=== PATIENT | male | born 1975 | race Caucasian/White ===

== ENCOUNTER → 2021-01-03 07:12 | Outpatient (BNVA) | payer OTHER, SELFPAY | PROVIDERS: Family Provider Nurse Practitioner; PCP Nurse Practitioner; Visit Provider Family Medicine | DX: M76.60 Achilles tendinitis, unspecified leg (principal); I10 Essential (primary) hypertension; E78.49 Other hyperlipidemia | CPT/HCPCS: 80053; 80061; 82043; 85025 ==

== ENCOUNTER 2021-01-12 12:27 | Outpatient (CLI) | payer OTHER, SELFPAY ==
--- NOTE | 2021-01-12 12:45 | US_ITS ---
WS: [id number] INDICATION: Achilles tendon pain and swelling TECHNIQUE: Ultrasound soft tissue FINDINGS: Ultrasound soft tissue area of concern left Achilles. No evidence of high-grade Achilles te ndon tear. No tendon gap or tendon retraction. No acute appearing tears. Mild thickening of the mid A chilles tendon consistent with tendinosis. US/US soft tissue/extremity [id number] IMPRESSION: Mild thickening of the Achilles tendon upper limits of normal consi stent with tendinosis. No acute appearing tears.
== END 2021-01-12 12:28 | disposition home or self-care (01) ==
LOC: RAD 12:28
PROVIDERS: PCP Family Medicine; Visit Provider Family Medicine
DX: M76.60 Achilles tendinitis, unspecified leg (principal); M79.89 Other specified soft tissue disorders
CPT/HCPCS: 76882

== ENCOUNTER 2021-02-14 06:54 | Outpatient (CLI) | payer OTHER, SELFPAY ==
[2021-02-14 06:59] VITALS: BMI 34.2
--- NOTE | 2021-02-14 07:22 | ECG_ITS ---
[facility] Test Date: 2021-02-14 Pat Name: Gerard Guidry Department: Room: Gender: Male Global Recruiter: : 1975 Requested By: Pepper Bar Order Number: [id number] Emilie MD: PEPPER BAR Interpretive Statements NAME OF STUDY: LEXISCAN SESTAMIBI STRESS TEST INDICATION: Chest Pain, NOTE: Please note that this is the electrocardiogram portion of the Lexiscan/Sestamibi stress test. The perfusion scan will be documented separately. DATA: Baseline heart rate was 69 beats per minute. Baseline blood pressure was 180/77 millimeters of mercury. Target heart rate was 176. Maximum heart rate achieved was 100. which was 56 % of the predicted target heart rate. Maximum blood pressure was 213/92 millimeters of mercury. The reason for ending the test was completion of the protocol. The patient did not experience any symptoms. ELECTROCARDIOGRAM: BASELINE: Sinus rhythm. Normal axis. Otherwise, no ST-T changes suggestive of ischemia noted. No arrhythmia noted. EXERCISE: After Lexiscan injection, no ST-T changes suggestive of ischemic noted. No arrhythmia noted. CONCLUSION: Please note due to baseline abnormality of the EKG specificity and sensitivity of the EKG portion of LexiScan MIBI stress test will be low 1. EKG not suggestive of ischemia 2. Lexiscan injection unremarkable. 3. Perfusion scan will be documented separately. Electronically Signed On 02-19-2021 20:48:10 CDT by PEPPER BAR [id number]
--- NOTE | 2021-02-14 07:23 | NMCV_ITS ---
NM dinorah perf SPECT r/s* [id number] Gerard Guidry Age: 45 Gender: M : 1975 Exam Date: 02/14/2021 08:27 Ordering Phys: Tiff Bar MD ([email or web address]) Technologist: ROSAURA Flor Exam Location: [facility] Indications: SOB STRESS TEST Please see separate stress test report in [facility] for full findings IMAGE PROTOCOL Rest/Stress 1 Lexiscan Day Radiopharmaceutical Dose (mCi) Administration Site Administered by Rest: Tc-99m 10.9 IV ROSAURA Flor Sestamibi Stress:Tc-99m 33.0 IV ROSAURA Flor Sestamibi Rest: 14-Feb-2021 60 Discovery 630 Stress: 14-Feb-2021 45 Discovery 630 0.4mg Lexiscan. Images obtained in supine and prone position. SPECT RESULTS Technical Quality: Good Raw Data Analysis: Normal Image Corrections: No attenuation or motion correction applied Summed Stress Score: 15 Summed Rest Score: 12 Summed Difference Score: 4 PERFUSION FINDINGS Large area of fixed perfusion defect suggestive of old myocardial infarction versus scarring noted in basal distal inferior inferoseptal wall surrounded by mild clara-infarct ischemia. Small area of fixed perfusion defect noted in mid anterior wall suggestive of old myocardial infarction versus scarring. FUNCTIONAL RESULTS (calculated via Gated SPECT) Stress Image LV EF (%): 38 Stress EDV (mL):120 TID: 1.13 Stress ESV (mL):74 Rest Image LV EF (%): 38 FUNCTIONAL FINDINGS: Inferior wall akinesis IMPRESSIONS Large area of old myocardial infarction surrounded by mild clara-infarct ischemia noted in basal to distal inferior, inferoseptal and inferolateral wall. Small area of old myocardial infarction versus scarring noted in mid anterior wall.TID ratio is elevated which could be secondary to left ventricle hypertrophy/subendocardial ischemia however multivessel coronary artery disease is a possibility. Tiff Bar MD (Electronically Signed) Final Date: 14 February 2021 18:01 S
[2021-02-14] MEDS: regadenoson 0.4 Mg/5 ml Syringe IVP (09:43)
[2021-02-14 09:55] VITALS: BP 204/92; PULSE 84
== END 2021-02-14 06:55 | disposition home or self-care (01) ==
LOC: CDL 06:56
PROVIDERS: PCP Family Medicine; Visit Provider Internal Medicine Cardiovascular Disease
DX: R06.02 Shortness of breath (principal); R07.9 Chest pain, unspecified; I25.2 Old myocardial infarction
CPT/HCPCS: 78452; 93017; A9500; J2785

== ENCOUNTER → 2021-03-10 09:44 | Outpatient (BNVA) | payer OTHER, SELFPAY | PROVIDERS: PCP Family Medicine; Visit Provider Internal Medicine Cardiovascular Disease | DX: I25.10 Atherosclerotic heart disease of native coronary artery without angina pectoris (principal); Z01.812 Encounter for preprocedural laboratory examination | CPT/HCPCS: 87635 ==

== ENCOUNTER 2021-03-16 09:00 | Day surgery (SDC) | payer OTHER, SELFPAY ==
[2021-03-10 09:35] LABS: Basophils % 0.3 %; Eosinophils # 0.1 10^3/uL (0.0-0.8); Eosinophils % 0.6 %; Hematocrit 47.1 % (42.0-52.0); Lymphocytes # 2.6 10^3/uL (0.8-4.8); Mean Corpuscular Hemoglobin 30.9 pg (28.0-34.0); Mean Corpuscular Volume 90.9 fL (80-94); Monocytes # 0.8 10^3/uL (0.2-0.9); Monocytes % 8.9 %; Neutrophils # 5.43 10^3/uL (1.8-7.7); Neutrophils % 60.9 %; Nucleated Red Blood Cells % 0 %; Platelet Count 216 10^3/cmm (130-400); Red Blood Count 5.18 10^6/uL (4.1-5.3); Red Cell Distribution Width 12.6 % (12.1-15.1); White Blood Count 8.9 10^3/uL (4.0-10.0)
[2021-03-10 09:44] LABS: INR 0.96 (0.83-1.21); Prothrombin Time (Patient) 13.1 Seconds (12.0-15.1)
[2021-03-10 09:49] LABS: Anion Gap 13.6 (5-19); Blood Urea Nitrogen 15 mg/dL (6-20); Calcium 9.6 mg/dL (8.5-10.5); Carbon Dioxide 24 mmol/L (22-29); Chloride 104 mmol/L (98-107); Glomerular Filtration Rate 91.7 mL/min (90-130); Glucose 106 mg/dL (65-115); Osmolality Calculated 285 mOsm/kg (285-295); Potassium 4.6 mmol/L (3.5-5.1); Sodium 137 mmol/L (136-145)
[2021-03-16] VITALS (13 sets, daily range): BP systolic 106–133; BP diastolic 61–93; PULSE 68–82; RESP 12–19; TEMP 36.8; O2SAT 93–97; BMI 35.2
--- NOTE | 2021-03-16 09:00 | XACV_ITS ---
Ht: 185 cm Wt: 121 kg BSA: 2.54 m2 Gender: Male : 1975 Exam Priority: Routine Procedure(s): Procedure Description: Diagnostic procedure Procedure Description: Left Heart Catheterization Diagnostic Cath Status: Elective Diagnostic Findings * Indication for left heart cath: Chest pain/abnormal stress. * No significant disease noted in the Left Main, LAD, Circumflex, or RCA coronary arteries. * Coronary angiography shows right dominance. Conclusions 1. No significant disease noted in the Left Main, LAD, Circumflex, or RCA coronary arteries. Recommendations * Continue current medical management and risk factor modification. Clinical Evaluation EBL: 5mL-10mL Procedural Details Procedure Consent Obtained. Admit Source: Out Patient. Pre-Procedure Time Out. Identified patient by full name and date of as verbalized by the patient/guarantor. Does the consent match the physician's order: Yes. Accurate & Complete Informed Consent: Yes. Inpatient/Outpatient History & Physical on Chart: Yes. If H&P is completed, is and addenduem needed: N/A; If yes, is the addendum complete: N/A. Visualize and Verify Site with Patient/Guarantor: N/A. Relevant Radiology Images available: N/A. Pre-op teaching completed and patient verbalized understanding. The risks, benefits, and alternatives of sedation and/or procedure were discussed by physician. The patient agrees to continue. Procedure started. [facility] Clinical Fraility Score: 3: Managing Well. 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 Chest Pain Symptom Assessment: Atypical Angina. Cardiovascular Instability: No,. Correct patient, site and procedure confirmed by cath team. PERRLA. 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 Lungs clear x 5 lobes. IV Site on Arrival: 20 gauge in the left anticubital. Pre Procedural Pulses: bilateral dorsalis pedis was 2+. Pre Procedural Pulses: bilateral posterior tibial was 3+. Pre Procedural Pulses: bilateral radial was 3+. Oxygen started at 2liters/min via nasal canula. bilateral groins was prepped with chloroprep then draped in the usual sterile fashion. right radial was prepped with chloroprep then draped in the usual sterile fashion. Physician notified. Baseline sample Acquired. HR: 63 BPM. Physician arrived. Physician scrubbed in. Immediate Pre-Procedure Time Out. Correct Patient: Yes; Correct Procedure: Yes; Correct Site: Yes; Correct Patient Position: Yes; Correct Supplies: Yes; Dried Flammable Prep: Yes; Blood Products Available: NA;. Lidocaine 1% infiltrated to the right radial. Arterial access obtained. A 5 kuwaiti TIG catheter in over wire. Multiple views taken of left coronary artery. Catheter redirected to the RCA. Multiple views taken of right coronary artery. Catheter out. TR band placed. Hemostasis obtained. Post Procedure: Pulses reassessed and unchanged. PERRLA. 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 No VTE prophylaxis required. Contrast type used: Omnipaque 300 mgI/mL, 500 mL bottle. Contrast Material : Omnipaque 58 ml. Medication's Wasted: Lidocaine 1% = 18 mL. Medication's Wasted: Heparin = 1000 units. Total IV fluids: 50 mL. Post-op diagnosis: 14% instant stenosis of RCA. Complications: none. Estimated blood loss: 5mL-10mL. A TR Band was successful obtaining hemostatsis at the Right Radial artery insertion site. Procedure completed. Patient transferred by wheelchair to 1st floor. Vital chart was stopped. Access Site Site: Right Radial artery Sheath Size: 6 Fr Hemostasis Method: TR Band Hemostasis Success: Successful Procedure Medications Start: 10:23 AM Stop: 10:23 AM Medication: Versed Amount: 1 mg Route: I.V. Start: 10:24 AM Stop: 10:24 AM Medication: Fentanyl Amount: 50 mcg Route: I.V. Start: 10:30 AM Stop: 10:30 AM Medication: Versed Amount: 1 mg Route: I.V. Start: 10:30 AM Stop: 10:30 AM Medication: Fentanyl Amount: 50 mcg Route: I.V. Start: 10:36 AM Stop: 10:36 AM Medication: Heparin Amount: 5000 units Route: I.V. I, the attending physician, have reviewed and verified all procedure medications. Yes, all medications given per verbal order History/Risk Factors Hypertension: Yes Dyslipidemia: Yes Myocardial Infarction ([place]): Yes Tobacco Use: Former Prior Interventions PCI: Yes Report Signatures Finalized by Tiff Bra MD on 03/29/2021 09:46 PM
[2021-03-16] MEDS: diphenhydrAMINE 50 mg Capsule PO (09:45)
--- NOTE | 2021-03-16 10:21 | W.PM.OPSFHP ---
Same Day Surgery H&P Indication for Procedure/HPI DATE OF PROCEDURE: March 16, 2021 CHIEF COMPLAINT/INDICATIONFOR SURGICAL PROCEDURE: Shortness of breath, chest pain, abnormal stress test PREOP DIAGNOSIS: Shortness of breath, abnormal stress test, chest pain PLANNED PROCEDRUE: Operation Date: 03/16/21 10:00 Proposed Procedures p left Cardiac Catheterization 45109 r94.39(Left) - Tiff Bar MD 45-year-old male past medical history significant for hypertension hyperlipidemia history of cardiac arrest as a complication of ST elevation [place] noted to have occluded RCA treated with drug-eluting stent in 2019. Patient did fine until couple of months ago when he started noticing worsening of shortness of breath with chest pain upon moderate exertion. Due to atypical symptoms patient underwent stress test which showed mild to moderate ischemia in the inferior inferolateral territory despite of optimization of medicine. Since patient continues to have symptoms and he is high risk for acute coronary syndrome we decided to bring him for left heart cath. Patient has been explained by myself in detail regarding risk benefit and alternative for the procedure. He understand the risk for major minor bleed, urgent emergent surgery, arrhythmia, CVA and worse case scenario . He would like to proceed with it. Medications/Allergies* Home Medications Medication Instructions Recorded Confirmed Type rosuvastatin 40 mg tablet 20 mg PO DAILY tab 01/13/21 03/16/21 History Allergies/Adverse Reactions Allergy/AdvReac Type Severity Reaction Status Date / Time No Known Allergies Allergy Verified 01/27/21 09:05 Current Medications: Generic Name Dose Route Start Last Admin Trade Name Freq PRN Reason Stop Dose Admin Sodium Chloride 1,000 mls @ 50 mls/hr 03/16/21 09:00 03/16/21 09:46 Sodium Chloride 0.9% IV 03/17/21 04:59 Not Given .Q20H ONE Pertinent History/Comorbid Conditions* Medical History (Updated 01/17/21 @ 17:37 by Tiff Bar MD) Coronary artery disease History of [place] (myocardial infarction) HTN (hypertension) Hyperlipidemia Surgical History (Updated 12/30/20 @ 09:31 by Alexandra Roque DO) S/P PTCA (percutaneous transluminal coronary angioplasty) 03/20/19 Family History (Updated 01/15/20 @ 08:24 by Bernadette Matos LPN) Heart disease Grandfather Social History Smoking and tobacco status: former smoker History of recent travel: No Pertinent Exam Findings alert, oriented x 3, clear to auscultation bilaterally and regular rate & rhythm Conscious Sedation Assessment PATIENT ASSESSED PRIOR TO SEDATION, WITH NO CHANGE NOTED: Yes AIRWAY EVAL/ANESTHESIA PLAN: normal airway, ASA II, Risks, benefits & alternatives of sedation and/or procedure discussed and Patient agrees to continue as planned Recommendations Surgery/Procedure today Coding Level of Care Code Acute Healthcare Administration Internship for Tez Goldberg
--- NOTE | 2021-03-16 11:00 | PC.NURSE ---
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 pt alert and oriented x3. complains of no pain. tr band placed on right wrist, dry and intact no hematoma noted. pt placed on vitals and will be monitored per protocol. pt educated on restrictions of right wrist and he acknowledged understanding.
--- NOTE | 2021-03-16 13:00 | PC.NURSE ---
tr band removal removed tr band with no complications. no hematoma noted. large bandaid with light wrapped coban to be removed tonight. baidaid to be removed tomorrow night. pt again educated with restrictions of right wrist, he stated his understanding.
== END 2021-03-16 13:57 | disposition home or self-care (01) ==
PROVIDERS: PCP Family Medicine; Visit Provider Internal Medicine Cardiovascular Disease
DX: R94.39 Abnormal result of other cardiovascular function study (principal); R06.02 Shortness of breath; R07.9 Chest pain, unspecified; I25.10 Atherosclerotic heart disease of native coronary artery without angina pectoris; I25.2 Old myocardial infarction; I10 Essential (primary) hypertension; E78.5 Hyperlipidemia, unspecified; Z82.49 Family history of ischemic heart disease and other diseases of the circulatory system; Z87.891 Personal history of nicotine dependence
CPT/HCPCS: 36415; 80048; 85025; 85610; C1769; C1887; C1894; J1644; J2250; J3010; J7030; Q0163; Q9967

== ENCOUNTER → 2021-03-22 14:19 | Outpatient (BNVA) | payer OTHER, SELFPAY | PROVIDERS: PCP Family Medicine; Visit Provider Nurse Practitioner Family | DX: I10 Essential (primary) hypertension (principal); I25.10 Atherosclerotic heart disease of native coronary artery without angina pectoris | CPT/HCPCS: 80048 ==

== ENCOUNTER → 2022-05-11 07:32 | Outpatient (BNVA) | payer OTHER, SELFPAY | PROVIDERS: PCP Family Medicine; Visit Provider Family Medicine | DX: E78.5 Hyperlipidemia, unspecified (principal) | CPT/HCPCS: 80061; 80076 ==

== ENCOUNTER 2023-06-19 13:36 | Outpatient (CLI) | payer OTHER, SELFPAY ==
--- NOTE | 2023-06-19 14:00 | USCV_ITS ---
Gerard Guidry Age: 47 Gender: M : 1975 Exam Date: 06/19/2023 14:31 Ordering Phys: Jhonatan Barrera MD ([email or web address]) Technologist: [place] [facility] [place]: ischemic cardiomyopathy BP: 120 / 85 HR: 80 Rhythm: Sinus Technical Quality: Adequate MEASUREMENTS (Male / Female) Normal Values 2D ECHO LV Diastolic Diameter PLAX 5.5 cm 4.2 - 5.9 / 3.9 - 5.3 cm LV Systolic Diameter PLAX 4.2 cm IVS Diastolic Thickness 0.9 cm 0.6 - 1.0 / 0.6 - 0.9 cm IVS Systolic Thickness 1.7 cm LVPW Diastolic Thickness 1.1 cm 0.6 - 1.0 / 0.6 - 0.9 cm LVPW Systolic Thickness 2.0 cm LVOT Diameter 2.1 cm LV Ejection Fraction 2D Teich 39.0 % LV Ejection Fraction MOD 2C 22.3 % LV Ejection Fraction 2C AL 25.5 % LA Diameter 3.8 cm Aorta at Sinotubular Diameter 2.3 cm M-MODE Aortic Annulus Diameter 2.7 cm LA Ao Ratio MM 1.6 MV E Point Septal Separation 0.6 cm DOPPLER AV Peak Velocity 129.0 cm/s LVOT Peak Velocity 122.0 cm/s AV Area Cont Eq vti 3.8 cm squared AV Area Cont Eq pk 3.3 cm squared MV Peak Velocity 74.0 cm/s MV Area PHT 5.1 cm squared Mitral E to A Ratio 1.0 MV E' Velocity 43.5 cm/s Mitral E to MV E' Ratio 8.6 Mitral E to LV E' Lateral Ratio 10.3 Mitral E to LV E' Septal Ratio 7.5 TR Peak Velocity 66.0 cm/s TR Peak Gradient 1.7 mmHg TV Peak E Velocity 84.0 cm/s Right Atrial Pressure 3.0 mmHg Pulmonary Artery Systolic Pressu 4.7 mmHg PV Peak Velocity 139.0 cm/s FINDINGS Left Ventricle Normal left ventricular size and systolic function, EF 68 %. No regional wall motion abnormalities. Right Ventricle The right ventricle is normal in size and function. Right Atrium The right atrium is normal in size. Left Atrium The left atrium is normal in size. Mitral Valve No gross abnormalities noted Aortic Valve No gross abnormalities noted Tricuspid Valve No gross abnormalities noted Pulmonic Valve No gross abnormalities noted Pericardium Normal pericardium without effusion. Aorta Normal aortic annulus size. IVC Inferior vena cava not visualized. CONCLUSIONS Normal left ventricular size and systolic function, EF 68 %. No regional wall motion abnormalities. Normal cardiac chamber sizes. No significant valvular abnormalities. There is no pericardial effusion. There are no intracardiac masses. Compared to the study from 03/29/2019, there is improvement of the LV ejection fraction Dr Ania Mcpherson MD FACC (Electronically Signed) Final Date: 20 June 2023 09:11 S
== END 2023-06-19 13:37 | disposition home or self-care (01) ==
PROVIDERS: PCP Family Medicine; Visit Provider Specialist
DX: E78.5 Hyperlipidemia, unspecified (principal); I25.10 Atherosclerotic heart disease of native coronary artery without angina pectoris; I25.5 Ischemic cardiomyopathy
CPT/HCPCS: 93306

== ENCOUNTER 2024-08-28 07:58 | Outpatient (CLI) | payer OTHER, SELFPAY ==
[2024-08-28 08:51] LABS: Alanine Aminotransferase 99 U/L (0-41); Albumin Level 4.1 g/dL (3.5-5.2); Alkaline Phosphatase 57 U/L (40-130); Aspartate Amino Transferase 42 U/L (0-40); Chol HDL Ratio 4.63 mg/dL (1.0-5.00); Cholesterol 139 mg/dL (0-200); Globulin 3.1 g/dL (1.3-4.6); HDL Cholesterol 30 mg/dL (60-100); LDL Cholesterol Calculated 63 mg/dL (50-129); Total Bilirubin 0.5 mg/dL (0.15-1.2); Total Protein 7.2 g/dL (6.6-8.7); Triglycerides 231 mg/dL (0-150)
== END 2024-08-28 07:59 | disposition home or self-care (01) ==
LOC: LAB 07:59
PROVIDERS: PCP Family Medicine; Visit Provider Internal Medicine Cardiovascular Disease
DX: E78.5 Hyperlipidemia, unspecified (principal)
CPT/HCPCS: 36415; 80061; 80076